=== PATIENT | female | born 1985 | race Two or more races ===

== ENCOUNTER 2024-09-15 14:53 | Emergency (ER) | payer OTHER ==
[~2024-09-15] VITALS: Ht 162.6 cm; Wt 65.8 kg
[2024-09-15] MEDS ORDERED: SYNTHROID137 MCG PO (15:32)
[2024-09-15] MEDS ORDERED: ACETAMINOPHEN 500 MG GEL..CAP PO STA (17:22)
[2024-09-15] MEDS ORDERED: FAMOTIDINE/PF 20 MG/2 ML VIAL IV PUSH STA (17:22)
== END 2024-09-15 20:35 | disposition home or self-care (01) ==
LOC: ER 14:55
DX: T18.9XXA Foreign body of alimentary tract, part unspecified, initial encounter (principal); J02.9 Acute pharyngitis, unspecified
CPT/HCPCS: 76700; 96365; 99284; J3490